=== PATIENT | female | born 1940 | race Caucasian/White ===

== ENCOUNTER → 2022-05-14 | Outpatient (CLI) | payer MEDICARE ==
[~2022-05-14] MED LIST: AMLO2.5T3 PO; ATEN50TA2 PO; BIMA01SOL OD; LEVO25TA5 PO; OMEP-173 PO; SPIR-10 PO; TIMO0.5S29 OD
== END ==
LOC: M LABSMTC 09:59
PROVIDERS: ATTEND Ophthalmology
DX: Z01.818 Encounter for other preprocedural examination (principal); Z11.52 Encounter for screening for COVID-19

== ENCOUNTER 2022-05-19 09:56 | Day surgery (SDC) | payer MEDICARE ==
[~2022-05-19] VITALS: Ht 162.6 cm; Wt 64.4 kg
[~2022-05-19 09:56] MED LIST changes: +LIDOCAINE 1% SDV 5ML VIAL As Ordered ONE; +LIDOCAINE 3.5 % 1ML OPHTH TOPICAL GEL OU ONE; +mitoMYcin 0.2 MG/VIAL KIT FOR OPHTHALMIC USE (J7315 PER 0.2MG) As Ordered ONE
[2022-05-19] MEDS ORDERED: PROPARACAINE 0.5% OPHTH SOL 15ML OU ONE (10:00)
[2022-05-19] MEDS ORDERED: MIDAZOLAM INJ 2MG/2ML VIAL (J2250 PER 1MG) As Ordered ONE (12:03)
[2022-05-19 12:35] VITALS: BP 172/72
== END 2022-05-19 12:44 | disposition home or self-care (01) ==
LOC: M SDC 09:56
PROVIDERS: ATTEND Ophthalmology
DX: H40.1110 Primary open-angle glaucoma, right eye, stage unspecified (principal); I10 Essential (primary) hypertension; E03.9 Hypothyroidism, unspecified; F32.A Depression, unspecified; Z85.09 Personal history of malignant neoplasm of other digestive organs; Z92.3 Personal history of irradiation; Z92.21 Personal history of antineoplastic chemotherapy; Z79.899 Other long term (current) drug therapy
CPT/HCPCS: 66183; C1783; J2250; J7315